=== PATIENT | female | born 1975 | race Caucasian/White ===

== ENCOUNTER 2016-06-22 11:54 | Emergency (ER) | payer MEDICARE, OTHER ==
[2016-06-22 12:26] VITALS: BP 132/75; PULSE 87; RESP 20; TEMP 98.1
--- NOTE | 2016-06-22 16:10 | ED ---
Wound/Laceration HPI - General Chief Complaint: Wound/Laceration Stated Complaint: Sores on right ankle Time Seen by Provider: 06/22/16 15:45 Source: family, RN notes reviewed Mode of arrival: ambulatory Limitations: language barrier, altered mental status, physical limitation - History of Present Illness Initial Comments: Patient is a 41-year-old female presents to the emergency room for evaluation of sores on her right leg. Patient is mentally incompetent. Patient is present with caregiver. Patient began developing sores on her right leg about a week ago. Patient's caregiver thought patient should be evaluated. Patient' s caregiver states patient is nonverbal denies patient expressing any pain at the area. Patient's caregiver denies any pus or drainage from the areas. Patient's caregiver thought that the sore's should be evaluated by a healthcare professional. Patient's caregiver denies any fevers or changes in behavior. Patient's caregiver states patient is up-to-date on her immunizations. - Related Data Home Medications Medication Instructions Recorded Confirmed Cimetidine [Tagamet] 400 mg PO HS 06/22/16 06/22/16 Levothyroxine Sodium [Levoxyl] 88 mcg PO DAILY 06/22/16 06/22/16 Loratadine [Claritin] 10 mg PO DAILY 06/22/16 06/22/16 Multivitamins, Thera [Multivitamin 1 tab PO DAILY 06/22/16 06/22/16 (formulary)] Oxybutynin Chloride 10 mg PO HS 06/22/16 06/22/16 Oxybutynin Chloride [Ditropan] 5 mg PO QAM 06/22/16 06/22/16 risperiDONE [RisperDAL] 0.75 mg PO HS 06/22/16 06/22/16 Previous Rx's Medication Instructions Recorded Cephalexin [Keflex] 500 mg PO Q6HR 7 Days 06/22/16 Mupirocin 2% Oint [Bactroban 2% 1 applic TOPICAL TID 10 Days 06/22/16 Oint] Allergies Allergy/AdvReac Type Severity Reaction Status Date / Time No Known Allergies Allergy Verified 06/22/16 16:39 Review of Systems ROS Statement: Those systems with pertinent positive or pertinent negative responses have been documented in the HPI. ROS Other: All systems not noted in ROS Statement are negative. Past Medical History Past Medical History: Hearing Disorder / Deafness, Thyroid Disorder Additional Past Medical History / Comment(s): Down syndrome, tourettes disorder , severe mental retardation, dysarthria History of Any Multi-Drug Resistant Organisms: None Reported Past Psychological History: No Psychological Hx Reported Smoking Status: Never smoker Past Alcohol Use History: None Reported Past Drug Use History: None Reported General Exam - General Exam Comments Initial Comments: Sitting on exam bed, no acute distress. Limitations: language barrier, altered mental status, physical limitation General appearance: alert, in no apparent distress Head exam: Present: atraumatic, normocephalic, normal inspection Eye exam: Present: normal appearance ENT exam: Present: normal exam Neck exam: Present: normal inspection Respiratory exam: Absent: respiratory distress Right Knee exam: Present: normal inspection, full ROM. Absent: tenderness Lower Leg exam: Present: full ROM. Absent: normal inspection (1 cm x 1 cm scab with slight surrounding erythema on the medial mid lower leg and a second 2 cm x 1 cm scab with slight surrounding erythema on the lateral distal lower leg. No pus or drainage noted. No swelling. No streaking noted.), tenderness Ankle exam: Present: normal inspection, full ROM. Absent: tenderness Neurovascular tendon exam: Present: no vascular compromise. Absent: pulse deficit (2+ dorsal pedal and posterior tibial pulses), abnormal cap refill ( Capillary refill less than 2 seconds) Back exam: Present: normal inspection Neurological exam: Present: alert, oriented X3, CN II-XII intact, normal gait Psychiatric exam: Present: normal affect, normal mood Skin exam: Present: warm, dry, normal color Course Vital Signs 06/22/16 12:22 Temperature 98.1 F Pulse Rate 87 Respiratory 20 Rate Blood Pressure 132/75 O2 Sat by Pulse 95 Oximetry Medical Decision Making - Medical Decision Making Patient is a 41-year-old female presents to the emergency room for elevation of sores on right leg. Patient does have 2 scabbed over wounds with surrounding erythema on right lower leg. No warmth or pus drainage from the areas. Will place patient on antibiotics and mupirocin ointment. Advised patient's caregiver to have patient follow up with primary care provider in 24-48 hours for evaluation of the wounds. Advised patient's caregiver to return for worsening symptoms. Patient's caregiver states she understands everything that was discussed with her. Case discussed with Dr. Shepard. Disposition Clinical Impression: Leg wound, right Disposition: HOME SELF-CARE Condition: Good Instructions: Acute Wound Care (ED) Additional Instructions: Clean wound areas with antibacterial soap and water daily. Apply mupirocin ointment over the wound area 3 times a day. Give antibiotics as directed. Please follow up with primary care provider in 1-2 days for reevaluation. If any new symptom arises or symptoms worsen, return to ER as soon as possible. Prescriptions: Cephalexin [Keflex] 500 mg PO Q6HR 7 Days Mupirocin 2% Oint [Bactroban 2% Oint] 1 applic TOPICAL TID 10 Days Referrals: None,Stated [Primary Care Provider] - 1-2 days Time of Disposition: 16:41
== END 2016-06-22 16:45 | disposition home or self-care (01) ==
LOC: EC 11:54
DX: S81.801A Unspecified open wound, right lower leg, initial encounter (principal); R41.82 Altered mental status, unspecified; F79 Unspecified intellectual disabilities; E07.9 Disorder of thyroid, unspecified; H91.90 Unspecified hearing loss, unspecified ear; Z79.899 Other long term (current) drug therapy; X58.XXXA Exposure to other specified factors, initial encounter
CPT/HCPCS: 99282